=== PATIENT | male | born 1955 | race American Indian/Alaskan Native ===

== ENCOUNTER 2022-04-15 15:03 | Emergency (ER) | payer OTHER, MEDICARE ==
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
[2022-04-15 23:29] VITALS: BP 162/76
== END 2022-04-15 23:30 | disposition home or self-care (01) ==
LOC: ED 15:03
DX: M25.562 Pain in left knee (principal); V89.2XXA Person injured in unspecified motor-vehicle accident, traffic, initial encounter; Y93.89 Activity, other specified; Y92.89 Other specified places as the place of occurrence of the external cause; Y99.8 Other external cause status
CPT/HCPCS: 99283